=== PATIENT | male | born 1975 | race Caucasian/White ===

== ENCOUNTER 2017-05-10 16:08 | Emergency (ER) | payer MEDICAID ==
[~2017-05-10] VITALS: Ht 167.6 cm; Wt 69.1 kg
[2017-05-10 16:10] VITALS: BP 128/81
[2017-05-10] MEDS ORDERED: LIDOCAINE 1%, 20ML SQ ONE (16:30)
[2017-05-10] MEDS ORDERED: LIDOCAINE 1%, 20ML ONE (16:44)
== END 2017-05-10 18:07 | disposition home or self-care (01) ==
LOC: ED 17:40
DX: L03.012 Cellulitis of left finger (principal); L02.512 Cutaneous abscess of left hand
CPT/HCPCS: 26010; 73140; 99284; J3490; 10060

== ENCOUNTER 2017-06-25 11:01 | Emergency (ER) | payer MEDICAID ==
[~2017-06-25] VITALS: Ht 170.2 cm; Wt 71.5 kg
[2017-06-25 11:06] VITALS: BP 123/83
[2017-06-25] MEDS ORDERED: KETOROLAC 30 MG/1 ML ONE (12:19)
[2017-06-25] MEDS ORDERED: KETOROLAC 30 MG/1 ML IM ONE (12:30)
== END 2017-06-25 12:33 | disposition home or self-care (01) ==
LOC: ED 12:23
DX: G56.01 Carpal tunnel syndrome, right upper limb (principal); J45.909 Unspecified asthma, uncomplicated
CPT/HCPCS: 29125; 96372; 99283; J1885

== ENCOUNTER 2017-06-30 01:26 | Emergency (ER) | payer MEDICAID ==
[~2017-06-30] VITALS: Ht 170.2 cm; Wt 73.7 kg
[2017-06-30 01:28] VITALS: BP 149/88
[2017-06-30] MEDS ORDERED: ALBUTEROL/IPRATROPIUM 2.5MG/0.5MG, 3 ML NPPB ONE (02:30)
[2017-06-30] MEDS ORDERED: ALBUTEROL/IPRATROPIUM 2.5MG/0.5MG, 3 ML ONE (02:31)
== END 2017-06-30 03:42 | disposition home or self-care (01) ==
LOC: ED 02:01
DX: R05 Cough (principal); B96.89 Other specified bacterial agents as the cause of diseases classified elsewhere; J20.8 Acute bronchitis due to other specified organisms; F15.10 Other stimulant abuse, uncomplicated
CPT/HCPCS: 71020; 99284; J7512

== ENCOUNTER 2019-06-04 04:04 | Emergency (ER) | payer MEDICAID ==
[~2019-06-04] VITALS: Ht 170.2 cm; Wt 76.5 kg
[2019-06-04] MEDS ORDERED: ALBUTEROL MDI (04:16)
--- NOTE | 2019-06-04 04:28 | NUR ---
PT PRENTED WITH C/O B/L LOWER ABD PAIN, PT STATES THAT HE HAS PAIN WITH URINATION AND DIFFICULTY VOIDING. MONITORS APPLIED, SIDERAIL SUP X2, CALL LIGHT WITHIN REACH. PROVIDED PT WITH URINE CUP FOR SAMPLE, PT STATED THAT HE CAN NOT URINATE AT THIS TIME
--- NOTE | 2019-06-04 05:06 | NUR ---
URINE SAMPLE SENT
[2019-06-04 05:16] LABS: BASOPHILS # (AUTO) 0.04 x10^3/uL (0-0.1); BASOPHILS % (AUTO) 1 % (0-1); EOSINOPHILS # (AUTO) 0.15 x10^3/uL (0-0.4); EOSINOPHILS % (AUTO) 2 % (1-7); LYMPHOCYTES # (AUTO) 1.56 x10^3/uL (1-3.4); LYMPHOCYTES % (AUTO) 21 % (22-44); MD NO; MEAN CORPUSCULAR HGB CONC 33.7 g/dL (33.2-36.2); MEAN CORPUSCULAR VOLUME 98.1 fL (81-97); MEAN PLATELET VOLUME 8.4 fL (7.4-10.4); MONOCYTES # (AUTO) 0.89 x10^3/uL (0.2-0.8); MONOCYTES % (AUTO) 12 % (2-9); NEUTROPHILS # (AUTO) 4.98 x10^3/uL (1.8-6.8); NEUTROPHILS % (AUTO) 65 % (42-75); PLATELET COUNT 173 x10^3/uL (130-400); RED CELL DISTRIBUTION WIDTH 12.8 % (9.4-14.8)
[2019-06-04 05:17] LABS: MICROSCOPIC INDICATED
[2019-06-04 05:18] LABS: CULTURE INDICATED? YES
[2019-06-04 05:25] LABS: ALANINE AMINOTRANSFERASE 124 U/L (12-78); ALBUMIN 3.7 g/dL (3.4-5.0); ANION GAP 3 mmol/L (5-15); CALCIUM 8.3 mg/dL (8.5-10.1); CHLORIDE 107 mmol/L (98-107); CREATININE 0.89 mg/dL (0.7-1.3)
[2019-06-04 05:28] VITALS: BP 120/83
[2019-06-04 05:28] LABS: ALKALINE PHOSPHATASE 63 U/L (45-117); BILIRUBIN,TOTAL 0.6 mg/dL (0.2-1.0); TOTAL PROTEIN 6.9 g/dL (6.4-8.2)
--- NOTE | 2019-06-04 05:29 | NUR ---
PT RESTING ON GURNEY, DENIES NEEDS, MONITORS IN PLACE, CALL LIGHT WITHIN REACH. AWAITING CT RESULT
[2019-06-04] MEDS ORDERED: CEFTRIAXONE 250 MG ONE (05:57)
[2019-06-04] MEDS ORDERED: AZITHROMYCIN 250 MG TABLET ONE (05:57)
[2019-06-04] MEDS ORDERED: CEFTRIAXONE 250 MG IM ONE (06:00)
[2019-06-04] MEDS ORDERED: AZITHROMYCIN 500 MG TABLET PO ONE (06:00)
--- NOTE | 2019-06-04 06:03 | NUR ---
PT MEDICATED PER MAR
== END 2019-06-04 06:36 | disposition home or self-care (01) ==
LOC: ED 05:34
DX: N34.1 Nonspecific urethritis (principal); F17.210 Nicotine dependence, cigarettes, uncomplicated; J45.909 Unspecified asthma, uncomplicated
CPT/HCPCS: 36415; 74176; 80053; 81001; 83690; 85025; 87086; 87491; 87591; 96372; 99284; J0696

== ENCOUNTER 2019-06-07 20:12 | Emergency (ER) | payer MEDICAID ==
[~2019-06-07] VITALS: Ht 170.2 cm; Wt 76.5 kg
[~2019-06-07 20:12] MED LIST: ALBUTEROL MDI
--- NOTE | 2019-06-07 21:05 | NUR ---
PROMOTION WRITER: [facility] COLLECTED AND SENT FROM [facility]. GC/CHLAMYDIA NEGATIVE WEDNESDAY.
[2019-06-07 21:16] LABS: CULTURE INDICATED? YES; MICROSCOPIC INDICATED
[2019-06-07 22:01] VITALS: BP 122/86
== END 2019-06-07 22:17 | disposition home or self-care (01) ==
LOC: ED 21:30
DX: R30.0 Dysuria (principal); J45.909 Unspecified asthma, uncomplicated; F17.200 Nicotine dependence, unspecified, uncomplicated
CPT/HCPCS: 81001; 87086; 99283

== ENCOUNTER 2020-01-08 23:12 | Emergency (ER) | payer MEDICAID ==
[~2020-01-08] VITALS: Ht 170.2 cm; Wt 78.5 kg
[2020-01-09 00:57] LABS: BASOPHILS # (AUTO) 0.04 x10^3/uL (0-0.1); BASOPHILS % (AUTO) 1 % (0-1); EOSINOPHILS # (AUTO) 0.12 x10^3/uL (0-0.4); EOSINOPHILS % (AUTO) 2 % (1-7); LYMPHOCYTES # (AUTO) 1.48 x10^3/uL (1-3.4); LYMPHOCYTES % (AUTO) 23 % (22-44); MD NO; MEAN CORPUSCULAR HEMOGLOBIN 31.6 pg (27.5-34.5); MEAN CORPUSCULAR HGB CONC 33.4 g/dL (33.2-36.2); MEAN CORPUSCULAR VOLUME 94.6 fL (81-97); MEAN PLATELET VOLUME 8.4 fL (7.4-10.4); MONOCYTES # (AUTO) 0.66 x10^3/uL (0.2-0.8); MONOCYTES % (AUTO) 10 % (2-9); NEUTROPHILS # (AUTO) 4.04 x10^3/uL (1.8-6.8); NEUTROPHILS % (AUTO) 64 % (42-75); PLATELET COUNT 186 x10^3/uL (130-400); RED BLOOD COUNT 5.13 x10^6/uL (4.38-5.82); RED CELL DISTRIBUTION WIDTH 13.2 % (9.4-14.8)
[2020-01-09 01:07] LABS: ALBUMIN 4.2 g/dL (3.4-5.0); ANION GAP 1 mmol/L (5-15); CHLORIDE 107 mmol/L (98-107); CREATININE 1.06 mg/dL (0.7-1.3)
--- NOTE | 2020-01-09 01:09 | NUR ---
[facility] SENT AND US AT BEDSIDE.
[2020-01-09 01:16] LABS: MICROSCOPIC INDICATED
[2020-01-09] MEDS ORDERED: AZITHROMYCIN 500 MG TABLET PO ONE (03:00)
[2020-01-09] MEDS ORDERED: SULFAMETH./TRIMETHOPRIM DS 800MG/160MG TABLET PO ONE (03:00)
[2020-01-09] MEDS ORDERED: CEFTRIAXONE 1,000 MG IM ONE (03:00)
[2020-01-09] MEDS ORDERED: AZITHROMYCIN 500 MG TABLET ONE (03:06)
[2020-01-09] MEDS ORDERED: CEFTRIAXONE 250 MG ONE (03:07)
[2020-01-09] MEDS ORDERED: SULFAMETH./TRIMETHOPRIM DS 800MG/160MG TABLET ONE (03:07)
[2020-01-09 03:17] VITALS: BP 129/97
== END 2020-01-09 03:27 | disposition home or self-care (01) ==
LOC: ED 01-09 02:14
DX: L03.116 Cellulitis of left lower limb (principal); R30.0 Dysuria; F17.210 Nicotine dependence, cigarettes, uncomplicated; J45.909 Unspecified asthma, uncomplicated; I10 Essential (primary) hypertension; Z91.81 History of falling
CPT/HCPCS: 36415; 80048; 81001; 82040; 85025; 87491; 87591; 93971; 96372; 99284; 99406; J0696

== ENCOUNTER 2020-02-04 23:12 | Emergency (ER) | payer MEDICAID ==
[~2020-02-04] VITALS: Ht 170.2 cm; Wt 80.0 kg
--- NOTE | 2020-02-05 | NUR ---
assumed care of pt. pt here for redness and swelling to L lower leg x1 month after a fall from a ladder while at work. pt reports thta he was seen previously for it and that he was given PO ABX, but has not had a F/U because he does not have a primary MD. pt ambulatory. CMS of L foot intact. no other c/o
[2020-02-05 00:42] VITALS: BP 117/79
== END 2020-02-05 00:58 | disposition home or self-care (01) ==
LOC: ED 02-05 00:48
DX: L03.116 Cellulitis of left lower limb (principal); M79.662 Pain in left lower leg; I10 Essential (primary) hypertension
CPT/HCPCS: 99283

== ENCOUNTER 2020-04-23 02:43 | Emergency (ER) | payer MEDICAID ==
[~2020-04-23] VITALS: Ht 170.2 cm; Wt 81.0 kg
--- NOTE | 2020-04-23 02:53 | NUR ---
PT AMBULATORY TO ROOM, STEADY GAIT.
[2020-04-23] MEDS ORDERED: ONDANSETRON 2MG/ML, 2ML ONE (03:12)
[2020-04-23] MEDS ORDERED: MORPHINE SULFATE 4 MG/ML, 1ML ONE ×2 (03:12→04:36)
[2020-04-23] MEDS: MORPHINE SULFATE 4 MG/ML, 1ML IVPush PRN ×2 (03:14→04:40)
[2020-04-23 03:19] LABS: BASOPHILS % (AUTO) 1 % (0-1); EOSINOPHILS % (AUTO) 1 % (1-7); LYMPHOCYTES % (AUTO) 18 % (22-44); MEAN PLATELET VOLUME 8.4 fL (7.4-10.4); MONOCYTES % (AUTO) 11 % (2-9); NEUTROPHILS % (AUTO) 69 % (42-75); PLATELET COUNT 174 x10^3/uL (130-400); RED BLOOD COUNT 4.86 x10^6/uL (4.38-5.82); RED CELL DISTRIBUTION WIDTH 12.6 % (9.4-14.8)
[2020-04-23 03:28] LABS: ALANINE AMINOTRANSFERASE 115 U/L (12-78); ALBUMIN 3.9 g/dL (3.4-5.0); ANION GAP 3 mmol/L (5-15); CALCIUM 8.9 mg/dL (8.5-10.1); CHLORIDE 105 mmol/L (98-107); CREATININE 0.82 mg/dL (0.7-1.3)
[2020-04-23 03:30] LABS: ALKALINE PHOSPHATASE 61 U/L (45-117); BILIRUBIN,TOTAL 0.4 mg/dL (0.2-1.0); TOTAL PROTEIN 7.5 g/dL (6.4-8.2)
[2020-04-23] MEDS ORDERED: ONDANSETRON 2MG/ML, 2ML IVPush ONE (03:30)
[2020-04-23] MEDS ORDERED: SODIUM CHLORIDE FLUSH 10ML SYR IVF ONE (03:30)
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
--- NOTE | 2020-04-23 03:58 | NUR ---
REPORT TO VINOD MIRANDA. RUBEN TO ASSUME FULL CARE OF PT AT THIS TIME. PT IN BED, TAHIR.
[2020-04-23 04:07] LABS: MD NO
[2020-04-23] MEDS ORDERED: OMNIPAQUE 350 MG/ML, 100ML BOTTLE ONE (04:20)
[2020-04-23 04:44] LABS: MICROSCOPIC NOT IND
[2020-04-23 05:45] VITALS: BP 134/74
== END 2020-04-23 05:48 | disposition home or self-care (01) ==
LOC: ED 03:24
DX: S22.31XA Fracture of one rib, right side, initial encounter for closed fracture (principal); S20.219A Contusion of unspecified front wall of thorax, initial encounter; S30.1XXA Contusion of abdominal wall, initial encounter; R07.89 Other chest pain; I10 Essential (primary) hypertension; X58.XXXA Exposure to other specified factors, initial encounter; Y93.89 Activity, other specified; Y92.89 Other specified places as the place of occurrence of the external cause; Y99.8 Other external cause status
CPT/HCPCS: 36415; 71045; 74177; 80053; 81003; 85025; 96374; 96375; 96376; 99285; J2270; J2405; Q9967; 99283

== ENCOUNTER 2021-04-05 02:04 | Emergency (ER) | payer MEDICAID ==
[~2021-04-05] VITALS: Ht 170.2 cm; Wt 80.1 kg
[2021-04-05 02:58] VITALS: BP 118/74
--- NOTE | 2021-04-05 02:59 | NUR ---
Patient given discharge instructions and they have confirmed that they understand the instructions. Patient ambulatory with steady gait. NAD, all questions answered appropriately, denies additional needs at this time. No personal belongings left in room after discharge.
== END 2021-04-05 04:17 | disposition home or self-care (01) ==
LOC: ED 03:00
DX: F15.10 Other stimulant abuse, uncomplicated (principal); Z72.9 Problem related to lifestyle, unspecified; I10 Essential (primary) hypertension
CPT/HCPCS: 99281